=== PATIENT | female | born 1960 | race Caucasian/White ===

== ENCOUNTER → 2019-04-25 | Outpatient (CLI) | payer OTHER | LOC: COL.VAS 08:14 | DX: I34.0 Nonrheumatic mitral (valve) insufficiency (principal); I51.7 Cardiomegaly ==

== ENCOUNTER → 2020-01-30 | Outpatient (CLI) | payer OTHER | LOC: COL.PUL 12:34 | DX: R06.02 Shortness of breath (principal); Z87.891 Personal history of nicotine dependence | CPT/HCPCS: J7674 ==